=== PATIENT | male | born 1975 | race Caucasian/White ===

== ENCOUNTER → 2018-01-09 | Outpatient (CLI) | payer BC | LOC: MHCPAIN 08:29 | DX: G89.29 Other chronic pain (principal); M54.12 Radiculopathy, cervical region; M47.812 Spondylosis without myelopathy or radiculopathy, cervical region | CPT/HCPCS: G0463 ==

== ENCOUNTER → 2018-01-22 | Outpatient (CLI) | payer BC | LOC: MHCPAIN 09:38 | DX: M54.12 Radiculopathy, cervical region (principal); M50.90 Cervical disc disorder, unspecified, unspecified cervical region | CPT/HCPCS: J1100; J2250; J3010; Q9967 ==

== ENCOUNTER → 2018-02-03 | Outpatient (CLI) | payer BC | LOC: MHCPAIN 08:40 | DX: G89.29 Other chronic pain (principal); M50.90 Cervical disc disorder, unspecified, unspecified cervical region; M54.12 Radiculopathy, cervical region | CPT/HCPCS: G0463 ==

== ENCOUNTER → 2018-02-12 | Outpatient (CLI) | payer BC | LOC: MHCPAIN 09:36 | DX: M54.12 Radiculopathy, cervical region (principal); M50.90 Cervical disc disorder, unspecified, unspecified cervical region | CPT/HCPCS: J1100; Q9967 ==

== ENCOUNTER → 2018-02-25 | Outpatient (CLI) | payer BC | LOC: MHCPAIN 09:50 | DX: G89.29 Other chronic pain (principal); M50.90 Cervical disc disorder, unspecified, unspecified cervical region; M54.12 Radiculopathy, cervical region | CPT/HCPCS: G0463 ==